=== PATIENT | female | born 1945 | race Caucasian/White ===

== ENCOUNTER 2018-09-12 15:22 | Outpatient (CLI) | payer MEDICARE | END 2018-09-12 15:23 | disposition home or self-care (01) | LOC: BICMAMMO 15:22 | PROVIDERS: ATTEND Internal Medicine | DX: Z12.31 Encounter for screening mammogram for malignant neoplasm of breast (principal); Z85.820 Personal history of malignant melanoma of skin | CPT/HCPCS: 77063; 77067 ==

== ENCOUNTER 2018-11-12 15:34 | Outpatient (CLI) | payer MEDICARE ==
--- NOTE | 2018-11-12 16:10 | RAD ---
EXAM: Lumbar spine 3 views: HISTORY: Back pain COMPARISON: 08/25/2015 FINDINGS: Exam includes flexion and extension lateral views. No evidence for abnormal translation. No evidence for acute fracture or dislocation involving the visualized spine. There are disc osteophytosis and facet arthrosis changes. No evidence for malalignment. No evidence for a bone lesion. IMPRESSION: Spondylosis. No significant acute process.
== END 2018-11-12 15:35 | disposition home or self-care (01) ==
LOC: TBSIIMAG 15:34
PROVIDERS: ATTEND Neurological Surgery
DX: M47.26 Other spondylosis with radiculopathy, lumbar region (principal)
CPT/HCPCS: 72100

== ENCOUNTER 2018-11-26 14:43 | Outpatient (CLI) | payer MEDICARE ==
--- NOTE | 2018-11-26 16:27 | MRI ---
MRI lumbar spine noncontrast: HISTORY: Lumbar radiculopathy. Low back pain radiating to both hips, x3 years. COMPARISON: 08/19/2015 FINDINGS: Appropriate T1 marrow signal intensity of the lumbar vertebra. Lumbar spine vertebral body height is maintained. No fracture. Type I and type II Modic changes at L3-L4. No significant STIR hyperintensity to suggest edema from fracture. No evidence of ligamentous injury Appropriate signal intensity of the paraspinal muscles Appropriate signal intensity of the solid organs. Small cyst in the lower pole the right kidney is loza spected Conus medullaris terminates at the T12-L1 disc space level. T12-L1:No significant central canal stenosis or neural foraminal narrowing L1-L2:No significant central canal stenosis or neural foraminal narrowing L2-L3:Generalized disc bulge, ligament flavum thickening and facet hypertrophy result in mild central canal stenosis. Mild bilateral neural foraminal narrowing. L3-L4:Desiccation with moderate loss of disc space height. Broad-based disc bulge, ligamentum flavum thickening and facet hypertrophy result in severe central canal stenosis. The degree of central canal stenosis has progressed when compared to the previous examination. Moderate to severe right and left neural foraminal narrowing L4-L5:Desiccation with moderate loss of disc space height. Broad-based disc bulge, ligament flavum th ickening and facet hypertrophy result in moderate to severe central canal stenosis. There is disc material the right subarticular zone with obscuration the traversing right L5 nerve root. There is al so narrowing of the left subarticular zone with obscuration the traversing left L5 nerve root. Compared to the previous examination, the degree of central canal stenosis has not changed. Severe ri ght and moderate left foraminal narrowing predominantly due to disc material. L5-S1:Minimal generalized disc bulge with disc material abutting but not obscuring the traversing S1 nerve root. No significant stenosis of the thecal sac. Mild bilateral foraminal narrowing. IMPRESSION: 1. Degenerative changes of the lumbar spine as described above. There is severe central canal stenosi s at L3-L4. 2. Degenerative disc disease at L4-L5 as described above. Significant narrowing of both subarticular zones, right greater than left. Obscuration of bilateral traversing L5 nerve roots. 3. Significant neural foraminal narrowing at L3-L4 and L4-L5. Transcribed Date/Time: 11/26/2018 4:36 PM
== END 2018-11-26 14:44 | disposition home or self-care (01) ==
LOC: BICMRI 14:43
PROVIDERS: ATTEND Neurological Surgery
DX: M51.16 Intervertebral disc disorders with radiculopathy, lumbar region (principal); M47.26 Other spondylosis with radiculopathy, lumbar region; M48.061 Spinal stenosis, lumbar region without neurogenic claudication
CPT/HCPCS: 72148